=== PATIENT | male | born 1960 ===

== ENCOUNTER 2018-02-14 02:08 | Outpatient (CLI) | payer SELFPAY ==
[2018-02-14 11:46] LABS: HEMOGLOBIN A1C 6.1 % (4.5-6.2)
[2018-02-14 11:59] LABS: CHOL/HDL RATIO 4.83 (0.00-4.99)
== END 2018-02-14 23:59 | disposition home or self-care (01) ==
LOC: HW HEART 02:08
DX: Z00.00 Encounter for general adult medical examination without abnormal findings (principal)
CPT/HCPCS: 36415